=== PATIENT | male | born 1950 | race Hispanic/Latino ===

== ENCOUNTER 2017-02-04 11:05 | Day surgery (SDC) | payer MEDICARE, MEDICAID ==
[~2017-02-04] VITALS: Ht 162.6 cm; Wt 77.1 kg
[~2017-02-04 11:05] MED LIST: AMLO5TAB2 PO; ASPI-973 PO; FERR325T6 PO; GLPZ5T PO; HYDR25TA4 PO; LIP40 PO; LOSA100T29 PO; METF500T4 PO; OMEP20CA11 PO; SITA100T12 PO; Sodium Chloride LOK Flush 10 mL Syringe IV PRN; fentaNYL-PF 50 mCg/mL 2 mL Inj IVPUSH PRN
[2017-02-04 12:27] VITALS: BP 155/101; PULSE 86; RESP 14; O2SAT 96
[2017-02-04] MEDS ORDERED: 0.9% Sodium Chloride 1,000 ML IV PRN (13:59)
[2017-02-04] MEDS: 0.9% Sodium Chloride 1,000 ML IV PRN ×2 (14:08→14:25)
--- NOTE | 2017-02-04 14:45 | PCM.ENDEGD ---
EGD Date of Service: February 04, 2017 Physician Marvin Paul MD Pre Procedure Diagnosis: Anemia Post Procedure Dx & Findings: Gastritis whitish nodule Procedure Esophagogastroduodenoscopy PROCEDURE IN DETAIL: After proper sedation, Olympus video endoscope was inserted into patient's mouth and esophagus was successfully intubated. Scope introduced esophagus. Esophagus showed normal shiny whitish mucosa consistent with squamous cell component. Z line was intact at 36 cm from the incisors. Scope further advanced to the stomach. Stomach showed his blunting of the rugae folds with isolated redness edema consistent with gastritis. Also there was patchy area of 1-2 mm whitish center with surrounding nodule. Possible xanthoma? Biopsies obtained of these nodules as well as the gastritis and placed in the same bottle. Cardia fundus body antrum pylorus were all visualized. Retroflexion was done. Stomach was easily inflated and deflatable using air. Scope further events to the distal duodenum. Duodenum revealed normal villous structures with normal appearing folds without any mass ulcer erosion. 5 biopsies obtained to rule out celiac disease. Impression Gastritis with whitish raised nodule 1-2 mm in size. No clear etiology for the anemia Recommendation Biopsy Presedation Assessment Risks and Benefits Informed consent was obtained from the patient after all risks and benefits including but not limited to drug reaction, infection, pain, bleeding, perforation, as well as alternatives were discussed. Patient monitoring Continuous pulse oximetry, cardiac monitoring, blood pressure monitoring, IV access, and oxygen at 2L per nasal cannula. Periprocedural Fentanyl: Fentanyl 100mcg Incrementally Midazolam: Midazolam 5mg Incrementally Complications There were no periprocedural complications identified. Post Procedure Plan Post Procedure Recommendations 1. Restrict activities today. 2. Resume normal activities in the morning. 3. Resume medications. 4. GERD behavioral modification: - Avoid fatty, acidic, spicy, large meals - Do not lie down after meals - Do not eat or drink anything for at least 2 1/2 hours before going to bed at night - Discontinue tobacco and alcohol - Decrease or avoid caffeine - Avoid chocolate and mints - Decrease weight - Avoid aspirin and non steroidal anti-inflammatory agents (NSAID) such as Aleve, Advil, Mobic, Naproxen, Ibuprofen, etc 5. Add proton pump inhibitor. Take 30 minutes before 1st meal of the day. 6. Patient informed of normal post procedure side effects as bloating, drowsiness, blood streaking in the stool 7. If gastric biopsy reveal H.pylori, continue with appropriate treatment 8. If small bowel biopsy reveals celiac, continue with appropriate treatment 9. Please don't hesitate to call me with any questions Marvin Paul MD February 04, 2017 14:45
--- NOTE | 2017-02-04 14:47 | PCM.ENDCOL ---
Colonoscopy Date of Service: February 04, 2017 Physician Marvin Paul MD Pre Procedure Diagnosis: Anemia and screening Post Procedure Dx & Findings: Hemorrhoids diverticuli Procedure Colonoscopy PROCEDURE IN DETAIL: Prep fair Withdrawal time 14 minutes After unremarkable rectal examination the Olympus video colonoscope was inserted patient's anal canal and was advanced to cecum. Landmarks were identified including the ileocecal valve and appendiceal orifice. Scope was withdrawn systematically. Visualized colonic mucosa showed healthy shiny mucosa with normal healthy-appearing vasculature. Multiple attempts made, unable to intubate to the terminal ileum due to the angle. In the sigmoid colon and also in the cecum, there are a few small diverticuli. In the rectum retroflexion was done which showed hemorrhoids. Anal canal was inspected carefully on the way out and hemorrhoids noted. Impression Unable to intubate into the TI Diverticuli Fair prep Hemorrhoids Recommendation Repeat colonoscopy 2 years Diverticular diet Presedation Assessment Risks and Benefits Informed consent was obtained from the patient after all risks and benefits including but not limited to drug reaction, infection, pain, bleeding, perforation, as well as alternatives were discussed. Patient monitoring Continuous pulse oximetry, cardiac monitoring, blood pressure monitoring, IV access, and oxygen at 2L per nasal cannula. Complications There were no periprocedural complications identified. Post Procedure Plan Post Procedure Recommendations 1. Restrict activities today. 2. Resume normal activities in the morning. 3. Resume medications. 4. Patient informed of normal post procedure side effects as bloating, drowsiness, blood streaking in the stool. 5. average risk CRCS. If colon polyps come back as: -Hyperplastic- can repeat colonoscopy in 10 years -Tubular adenoma- repeat colonoscopy in 5 years -Tubulovillous/villous adenoma- repeat colonoscopy in 3 years -If any dysplasia- return to clinic as soon as possible 6. Please don't hesitate to call me with any questions. Marvin Paul MD February 04, 2017 14:47
[2017-02-04 14:49] VITALS: BP 130/78; PULSE 76; RESP 14; O2SAT 94
[2017-02-04 15:03] VITALS: BP 152/89; PULSE 75; RESP 14; O2SAT 96
--- NOTE | 2017-02-06 10:26 | PATH ---
SURGICAL PATHOLOGY Attending Physician:Marvin Paul M.D. CASE STATUS: Signed Out PATIENT NAME: JOSE ANGEL JIMENEZ PID: [id number] : 1950 DATE COLLECTED:02/04/2017 00:00 SPECIMEN: 1: Duodenum, Biopsy 2: Gastric, Biopsy CLINICAL HISTORY: 1. DUODENAL BIOPSY 2. GASTRIC BIOPSY FINAL DIAGNOSIS: 1.DUODENAL BIOPSY: CHRONIC DUODENITIS WITH AREAS OF FOVEOLAR METAPLASIA AND FOCAL MUCOSAL EROSION. Negative for evidence of celiac disease. Negative for dysplasia and malignancy. 2.GASTRIC BIOPSY: MODERATE CHRONIC GASTRITIS INVOLVING ANTRAL AND FUNDIC MUCOSA. Immunohistochemistry for Helicobacter pending, to be reported by addendum. Negative for intestinal metaplasia. Negative for dysplasia and malignancy. ICD10 K29.70 GROSS DESCRIPTION: The specimen is received in two formalin filled containers labeled with the patient's name. 1). The specimen is sublabeled "duodenum" and consists of 4 portions of tissue which aggregate to 0.3 x 0.3 x 0.2 CM. The specimen is entirely submitted in cassette 1A. 2). The specimen is sublabeled "gastric" and consists of multiple portions of tissue which aggregate to 0.4 x 0.4 x 0.3 CM. The specimen is entirely submitted in cassette 2A. 02/05/2017 [facility] MICRO DESCRIPTION: See diagnosis. ICD-9 CODES: CPT CODES: 1: 34839 2: 39121, 35267, 34664 PROCEDURE/ADDENDA: Immunohistochemistry SPI Interpretation {Not Entered} Results-Comments An immunostain for Helicobacter organisms is negative. The diagnosis is unchanged. This test was developed and its performance characteristics determined by [facility]. It has not been cleared or approved by the [place]. Food and Drug Administration. The FDA has determined that such clearance or approval is not necessary. This test is used for clinical purposes. It should not be regarded as investigational or for research. Electronically Signed Out Abel Hollis MD Electronically Signed Out James Grey MD [facility] Pathology [facility] [address], [place] [address] Technical component performed at [facility], [address], [place], [address]
== END 2017-02-04 23:59 | disposition home or self-care (01) ==
LOC: END 11:05
PROVIDERS: ATTEND Internal Medicine
DX: K57.30 Diverticulosis of large intestine without perforation or abscess without bleeding (principal); K64.9 Unspecified hemorrhoids; K29.50 Unspecified chronic gastritis without bleeding; K29.80 Duodenitis without bleeding; D50.9 Iron deficiency anemia, unspecified; I10 Essential (primary) hypertension; E78.5 Hyperlipidemia, unspecified; E11.9 Type 2 diabetes mellitus without complications; E78.00 Pure hypercholesterolemia, unspecified; Z79.82 Long term (current) use of aspirin; Z79.84 Long term (current) use of oral hypoglycemic drugs
CPT/HCPCS: 43239; 45378; 99153; G0500; J7030